=== PATIENT | female | born 1960 | race Asian ===

== ENCOUNTER 2018-01-02 09:21 | Outpatient (CLI) | payer BC ==
[~2018-01-02 09:21] MED LIST: LISI20TA31 PO
== END 2018-01-02 18:14 | disposition home or self-care (01) ==
LOC: RESP 09:21
DX: R06.02 Shortness of breath (principal)

== ENCOUNTER 2018-06-14 16:02 | Emergency (ER) | payer BC ==
[~2018-06-14] VITALS: Ht 149.9 cm; Wt 92.1 kg
[2018-06-14 16:06] VITALS: TEMP 98.1
[2018-06-14] MEDS ORDERED: VITAMIN E100 UNIT PO (16:18)
[2018-06-14] MEDS ORDERED: OXYC5TAB24 PO (16:19)
[2018-06-14] MEDS ORDERED: DOCU100C10 PO (16:19)
[2018-06-14] MEDS ORDERED: SPIRIVA IN (16:20)
[2018-06-14 18:00] VITALS: BP 131/75
== END 2018-06-14 18:10 | disposition home or self-care (01) ==
LOC: ED 16:02
DX: N39.0 Urinary tract infection, site not specified (principal); T81.4XXA Infection following a procedure, initial encounter
CPT/HCPCS: 81000; 87070; 87077; 87186; 87205; 99283

== ENCOUNTER 2019-04-04 08:28 | Outpatient (CLI) | payer BC ==
[~2019-04-04 08:28] MED LIST changes: +DOCU100C10 PO; +OXYC5TAB24 PO; +SPIRIVA IN; +VITAMIN E100 UNIT PO
[2019-04-04] MEDS ORDERED: PROAIR HFA108 MCG/AC INH (08:41)
[2019-04-04] MEDS ORDERED: ALBUTEROL0.083 % INH (08:41)
== END 2019-04-04 08:33 | disposition short-term general hospital (02) ==
LOC: AMB 08:28
DX: R25.1 Tremor, unspecified (principal); R53.81 Other malaise
CPT/HCPCS: A0425; A0427

== ENCOUNTER 2019-04-04 08:34 | Emergency (ER) | payer BC ==
[~2019-04-04] VITALS: Ht 149.9 cm; Wt 92.1 kg
[2019-04-04 08:39] VITALS: TEMP 98.1
[2019-04-04] MEDS ORDERED: ALBUTEROL0.083 % INH (08:41)
[2019-04-04] MEDS ORDERED: PROAIR HFA108 MCG/AC INH (08:41)
[2019-04-04 09:01] LABS: PLATELET COUNT 182 K/uL (152-353)
[2019-04-04 09:10] LABS: POTASSIUM 3.6 mmol/L (3.6-5.2); SODIUM 139 mmol/L (136-145)
[2019-04-04 10:40] VITALS: BP 138/69
== END 2019-04-04 10:40 | disposition home or self-care (01) ==
LOC: ED 08:34
PROVIDERS: Student in an Organized Health Care Education/Training Program
DX: R55 Syncope and collapse (principal)
CPT/HCPCS: 80053; 81000; 82550; 83735; 84484; 85027; 93005; 96360; 96361; 99284

== ENCOUNTER 2019-07-25 15:31 | Emergency (ER) | payer BC ==
[~2019-07-25] VITALS: Ht 149.9 cm; Wt 92.1 kg
[~2019-07-25 15:31] MED LIST changes: +ALBUTEROL0.083 % INH; +PROAIR HFA108 MCG/AC INH
[2019-07-25 17:36] LABS: PLATELET COUNT 264 K/uL (152-353)
[2019-07-25 18:03] LABS: POTASSIUM 3.3 mmol/L (3.6-5.2)
[2019-07-25 21:18] VITALS: BP 128/76; TEMP 98.2
== END 2019-07-25 21:18 | disposition home or self-care (01) ==
LOC: ED 15:31
PROVIDERS: Family Medicine
DX: K52.9 Noninfective gastroenteritis and colitis, unspecified (principal); R11.2 Nausea with vomiting, unspecified; E87.6 Hypokalemia; E86.0 Dehydration
CPT/HCPCS: 80053; 85027; 87015; 87045; 87328; 87329; 87899; 96360; 96361; 96365; 96374; 96375; 99283; 99284; J2405; J3490

== ENCOUNTER 2019-10-02 09:45 | Outpatient (CLI) | payer BC | END 2019-10-02 19:28 | disposition home or self-care (01) | LOC: RAD 09:45 | DX: R10.9 Unspecified abdominal pain (principal); R31.9 Hematuria, unspecified; R35.0 Frequency of micturition ==

== ENCOUNTER 2020-05-20 12:13 | Outpatient (CLI) | payer BC | END 2020-05-20 20:08 | disposition home or self-care (01) | LOC: RAD 12:13 | DX: M25.551 Pain in right hip (principal); M79.604 Pain in right leg ==

== ENCOUNTER 2023-03-26 08:57 | Outpatient (CLI) | payer OTHER | END 2023-03-26 19:58 | disposition home or self-care (01) | LOC: MRI 08:57 | PROVIDERS: ATTEND Internal Medicine | DX: M54.40 Lumbago with sciatica, unspecified side (principal); M51.36 Other intervertebral disc degeneration, lumbar region | CPT/HCPCS: 36415; 82565; 84520; A9576 ==